=== PATIENT | female | born 1980 | race Caucasian/White ===

== ENCOUNTER 2019-03-03 00:23 | Inpatient (IN) | payer OTHER ==
[2019-03-03] MEDS ORDERED: METHYLERGONOVINE 0.2MG/ML AMP IM PRN (06:07)
[2019-03-03] MEDS ORDERED: Ringers Lactate 1,000 ML IV PRN (06:07)
[2019-03-03] MEDS ORDERED: BUTORPHANOL 1 MG/ML INJ IV PRN (06:07)
[2019-03-03] MEDS ORDERED: PROMETHAZINE 25 MG/ML VIAL IM PRN (06:07)
[2019-03-03] MEDS ORDERED: CARBOPROST TROME 250 MCG/ML IM PRN (06:07)
[2019-03-03] MEDS ORDERED: MEPERIDINE HCL 25 MG/0.5 ML IV PRN (06:07)
[2019-03-03 06:19] VITALS: BMI 30.7
[2019-03-03 06:29] LABS: RPR Titer ND
[2019-03-03 06:32] LABS: Urine Appearance CLOUDY; Urine Bilirubin NEGATIVE (NEG); Urine Blood TRACE (NEG); Urine Color YELLOW; Urine Glucose NEGATIVE (NEG); Urine Protein NEGATIVE (NEG)
[2019-03-03 06:39] LABS: Absolute Lymphocytes (CBC) 1.9 K/uL (0.7-4.9); Absolute Monocytes 0.4 K/uL (0.1-1.3); Basophils % 0.3 % (0-1.3); Eosinophils % 0.4 % (0-4.4); Hematocrit 38.2 % (36.0-45.0); Lymphocytes % 22.4 % (15.3-44.8); MPV 8.9 fL (7.6-11.3); Monocytes % 5.2 % (3.3-12.3); RBC Red Blood Cell Count 4.09 M/uL (3.86-4.86)
[2019-03-03 06:46] LABS: Urine Microscopic Reflex ORDER UMIC
[2019-03-03] MEDS ORDERED: OXYTOCIN/LR 20 UNIT/1,000 ML BAG IV SCH ×2 (07:00→15:00)
[2019-03-03] MEDS ORDERED: Ringers Lactate 1,000 ML IV SCH (07:00)
[2019-03-03 07:01] LABS: Urine RBC <5 /HPF (NONE SEEN)
[2019-03-03 07:02] LABS: Calcium Oxalate Crystals- Ur MANY (NONE SEEN); Urine Bacteria <20 /HPF (<20); Urine Culture Reflex Order REFLEXED
[2019-03-03] MEDS ORDERED: FENTANYL CITR 100 MCG/2 ML IV ONE (08:43)
[2019-03-03] MEDS ORDERED: ROPIVACAINE HCL 100 ML IV PRN (08:44)
[2019-03-03] MEDS ORDERED: ROPIVACAINE HCL 0.2% 20ML AMP IV ONE (08:45)
--- NOTE | 2019-03-03 12:23 | PREOPHP ---
Date of Admission: 03/03/2019 This is a 38-year-old, 7, para 5, at 39 weeks and 2 days for induction. History of macrosomi a. Last baby was over 11 pounds but it was easy vaginal delivery with no shoulder dystocia. The pat ient knows that this could occur though with any . This has been thoroughly discussed. She is Rh positive, immune to Rubella. Negative beta strep screen. The patient is jose regularl y at this point. Although she is not uncomfortable. She is 2 cm but still somewhat posterior, 50% e ffaced, soft cervix with the baby still -2 station. We will wait until the baby is further down to r upture membranes. She knows if membranes rupture spontaneously, she is to let the nurse know so we c an check and make sure that we are not dealing with a prolapsed cord. Full discussion. Admission an d labor talk given. The patient will be requesting epidural but of course, we have to get her in act cecilio labor first. ANNE-MARIE/BERT Voice ID: [id number]
[2019-03-03] MEDS ORDERED: ACETAMINOPHEN 500 MG TAB PO PRN (14:52)
[2019-03-03] MEDS ORDERED: BISACODYL 10 MG RECTAL SUPP RECT PRN (14:52)
[2019-03-03] MEDS ORDERED: Oxycodone HCl/Acetaminophen 1 TAB TAB PO PRN ×2 (14:52)
[2019-03-03] MEDS ORDERED: DIPHENHYDRAMINE 25 MG TAB/CAP PO PRN (14:52)
[2019-03-03] MEDS ORDERED: CEFAZOLIN/SWI 1gm 1 GM/10 ML SYR IVP ONE (16:00)
[2019-03-03] MEDS: IBUPROFEN 200 MG TAB PO PRN ×2 (17:05→23:08)
[2019-03-03] MEDS: DOCUSATE NA/SENNA CONC 1 TAB PO PRN (19:54)
[2019-03-03 20:59] LABS: RPR (Rapid Plasma Reagin) NON-REACT (NON-REACT)
[2019-03-03] MEDS ORDERED: GLYBURIDE 10 MG PO SCH (21:00)
--- NOTE | 2019-03-03 23:25 | OP ---
Surgeon: Marc Burks MD A 38-year-old, multiparous female, 7, para 5, AB 1, 39 weeks and 2 days, 2 cm on admission, r upture of membranes at approximately 4 cm, clear fluid. The patient requested and received epidural anesthesia, which gave excellent effect during remainder of labor and delivery. Second stage of 15 m inutes or thereabouts, spontaneous vaginal delivery of an estimated 10-pound male , Apgars 9 an d 9. Loose nuchal cord x1. Second-degree midline, somewhat jagged laceration sustained from probabl y last delivery and again this time, repaired with 2-0 chromic. Schultze delivery of the placenta, w hich was inspected and noted be intact and normal. Estimated blood loss at this point 300 cc or less . The patient had quite a bit of bowel movement and her anal and rectal area and everything was kept clean. We washed her with Betadine numerous times, but we will give her 1 g of Ancef for prophylaxi s and give her Betadine sitz baths later this evening. Full discussion with the patient. Rh positiv e, immune to Rubella. Negative beta strep screen. Final Diagnoses: Intrauterine gestation, 39 weeks and 2 days. Vaginal delivery. History of m acrosomia and macrosomia this delivery. Epidural anesthesia, 1 g Ancef for prophylaxis. ANNE-MARIE/BERT Voice ID: [id number] Report ID: [id number]
[2019-03-04] MEDS: IBUPROFEN 200 MG TAB PO PRN ×2 (05:10→11:25)
[2019-03-04] MEDS ORDERED: PNV CMB PO SCH (09:00)
[2019-03-04] MEDS ORDERED: FERROUS FUMARATE PO SCH (09:00)
[2019-03-04] MEDS ORDERED: [UNRECOGNIZED DRUG - OTHER] PO SCH (09:00)
[2019-03-04] MEDS: DOCUSATE NA/SENNA CONC 1 TAB PO PRN (17:10)
[2019-03-04 17:26] VITALS: BP 118/72; TEMP 97.6
[2019-03-06 03:24] LABS: HBsAG Nonreactive (Nonreactive)
--- NOTE | 2019-03-06 08:47 | PN ---
The patient is now 7.5 cm, basically 100% effaced. Cervix is still somewhat posterior and the baby i s still at about 0 station. She has a large baby. We have discussed this numerous times but she is making progress. Her legs, especially left leg is so numb. She cannot move it, so we eduardo l cut the maintenance dose on the epidural from 8 to 6. The patient agrees to this. We want all the push power that we can get when delivery. ANNE-MARIE/BERT Voice ID: [id number] Report ID: [id number]
--- NOTE | 2019-03-06 08:50 | PN ---
The patient has just had her epidural placed and she is comfortable, 4 cm. Cervix is still posterior , but baby is well applied. Rupture of membranes, clear fluid. Anticipate more rapid progress. ANNE-MARIE/BERT Voice ID: [id number] Report ID: [id number]
--- NOTE | 2019-03-06 08:50 | DS ---
Date of Discharge: 03/04/2019 Hospital Course: Hailey Dawkins is a 38-year-old, multiparous female, 7 para 5, AB 1, 39 weeks 2 days. Uneventful vaginal delivery of an 8-pound, 13-ounce male infant, Apgars 9 and 9. Loose nuc acosta cord x1. Second degree midline, somewhat jagged laceration, repaired with 2-0 chromic. Schultze delivery of the placenta, which inspected and noted to be intact and normal. A 300 cc or less blood loss. Rh positive, immune to Rubella. Negative beta-strep screen. Antepartum. The patient was ge stational diabetic, under good control though with glyburide. She will monitor herself at home, bloo d sugars, and if they are elevated, she still has a medicine, but then we will switch her to metformi n in the future. Has had her Tdap administration during the . Full instructions given. Final Diagnoses: 1.Intrauterine gestation, 39 weeks 2 days. 2.Vaginal delivery. 3.History of macrosomia, with the last baby weighing 11 pounds and 9 ounces. 4.Epidural anesthesia. ANNE-MARIE/BERT Voice ID: [id number] Report ID: [id number]
== END 2019-03-04 18:05 | disposition home or self-care (01) | DRG 807 ==
LOC: 2ND-WC 05:44
PROVIDERS: ADMIT Specialist; ATTEND Specialist
PROC: 10E0XZZ Delivery of Products of Conception, External Approach (ICD-10-PCS; principal; 2019-03-03)
PROC: 0KQM0ZZ Repair Perineum Muscle, Open Approach (ICD-10-PCS; 2019-03-03)
PROC: 3E033VJ Introduction of Other Hormone into Peripheral Vein, Percutaneous Approach (ICD-10-PCS; 2019-03-03)
DX: O24.425 Gestational diabetes mellitus in childbirth, controlled by oral hypoglycemic drugs (principal); Z37.0 Single live birth; O70.1 Second degree perineal laceration during delivery; O69.81X0 Labor and delivery complicated by cord around neck, without compression, not applicable or unspecified; Z3A.39 39 weeks gestation of pregnancy
CPT/HCPCS: 36415; 81003; 81015; 85025; 86592; 86901; 87086; 87088; 87340; J0690; J2210; J2590; J2795; J3010